=== PATIENT | male | born 1965 | race Caucasian/White ===

== ENCOUNTER 2024-09-01 15:43 | Observation (INO) | payer BC, OTHER ==
[2024-09-01 16:42] VITALS: BMI 33.3
[2024-09-01] MEDS ORDERED: ACETAMINOPHEN INJECTION 100 ML ONE (18:01)
[2024-09-01] MEDS ORDERED: DEXAMETHASONE SOD PHOSPHATE 10 MG/1 ML VIAL ONE (18:01)
[2024-09-01] MEDS: SODIUM CHLORIDE 0.9% 500 ML INFUS.BAG IV ONE (18:28)
[2024-09-01] MEDS: ACETAMINOPHEN 1000 MG/100 ML BAG IVPB ONE (18:28)
[2024-09-01 18:33] LABS: VENOUS BASE EXCESS 1.3 mmol/L (-2-2); VENOUS O2 SATURATION 74.1 % (70-80); VENOUS PCO2 38.5 mmHg (38-52); VENOUS PH 7.437 (7.310-7.410)
[2024-09-01 18:35] LABS: BASO % 0.1 % (0-2.0); EOS % 0.1 % (0-4.5); HEMATOCRIT 43.8 % (35.4-49); HEMOGLOBIN 14.4 GM/dL (11.7-16.9); LYMPH % 7.7 % (8-40); MCH 30.7 pg (25.7-33.7); MCHC 32.9 g/dl (32.0-35.9); MEAN CELL VOLUME 93.3 fl (80-96); MEAN PLT VOLUME 9.2 fl (7.5-11.1); MONO % 13.4 % (3.8-10.2); NEUT % 78.7 % (42.8-82.8); PLATELET COUNT 133 10^3/uL (134-434); RBC 4.69 M/mm3 (4.00-5.60); RDW 12.6 % (11.9-15.9); WHITE BLOOD COUNT 6.8 K/mm3 (4.0-10.0)
[2024-09-01 18:38] LABS: URINE APPEARANCE CLEAR; URINE BILIRUBIN NEGATIVE (NEGATIVE); URINE COLOR YELLOW; URINE GLUCOSE (UA) NEGATIVE (NEGATIVE); URINE KETONE TRACE (NEGATIVE); URINE LEUK ESTERASE NEGATIVE (NEGATIVE); URINE NITRITE NEGATIVE (NEGATIVE); URINE PROTEIN TRACE (NEGATIVE); URINE UROBILINOGEN 0.2 mg/dL (0.2-1.0)
[2024-09-01 18:46] LABS: INR 1.13 (0.83-1.09); PROTHROMBIN TIME (PATIENT) 12.9 SEC (9.7-13.0)
[2024-09-01 18:49] LABS: ACTIVATED PTT 28.9 SECONDS (25.2-36.5)
[2024-09-01 18:52] LABS: POTASSIUM 3.8 mmol/L (3.5-5.1)
[2024-09-01 18:55] LABS: ALBUMIN 4.1 g/dl (3.4-5.0); BLOOD UREA NITROGEN 12.8 mg/dL (7-18)
[2024-09-01 18:58] LABS: CREATININE 1.2 mg/dL (0.55-1.3)
[2024-09-01 18:59] LABS: BILIRUBIN,TOTAL 0.6 mg/dL (0.2-1); TOT PROT 7.6 g/dl (6.4-8.2)
[2024-09-01] MEDS: REMDESIVIR 200 MG in SODIUM CHLORIDE 250 ML IVPB ONE (19:08)
[2024-09-01] MEDS: DEXAMETHASONE SOD PHOSPHATE 10 MG/1 ML VIAL IVPUSH ONE (19:09)
[2024-09-01] MEDS ORDERED: APIXABAN 5 MG TABLET ONE (20:52)
[2024-09-01] MEDS: APIXABAN 5 MG TABLET PO ONE (20:57)
[2024-09-02] MEDS ORDERED: BENZOCAINE/MENTHOL 1 EACH LOZENGE MM PRN (04:35)
[2024-09-02] MEDS: ACETAMINOPHEN 1000 MG/100 ML BAG IVPB ONE (04:44)
[2024-09-02 09:29] LABS: HEMATOCRIT 39.5 % (35.4-49); HEMOGLOBIN 13.6 GM/dL (11.7-16.9); LYMPH % 13.6 % (8-40); MCH 31.4 pg (25.7-33.7); MCHC 34.4 g/dl (32.0-35.9); MEAN CELL VOLUME 91.3 fl (80-96); MEAN PLT VOLUME 9.7 fl (7.5-11.1); MONO % 13.9 % (3.8-10.2); NEUT % 72.5 % (42.8-82.8); PLATELET COUNT 124 10^3/uL (134-434); RBC 4.32 M/mm3 (4.00-5.60); RDW 12.9 % (11.9-15.9); WHITE BLOOD COUNT 5.3 K/mm3 (4.0-10.0)
[2024-09-02] MEDS ORDERED: APIXABAN 5 MG TABLET PO SCH (10:00)
[2024-09-02 10:03] LABS: ALBUMIN 3.7 g/dl (3.4-5.0)
[2024-09-02 10:04] LABS: BLOOD UREA NITROGEN 14.1 mg/dL (7-18)
[2024-09-02 10:05] LABS: CALCIUM 8.7 mg/dL (8.5-10.1)
[2024-09-02 10:07] LABS: PHOSPHOROUS 2.9 mg/dL (2.5-4.9)
[2024-09-02 10:08] LABS: BILIRUBIN,TOTAL 0.4 mg/dL (0.2-1); TOT PROT 6.8 g/dl (6.4-8.2)
[2024-09-02] MEDS: LISINOPRIL 10 MG TABLET PO SCH (10:16)
[2024-09-02] MEDS: APIXABAN 5 MG TABLET PO SCH (10:16)
[2024-09-02] MEDS: ROSUVASTATIN CA 10 MG TABLET PO SCH (10:16)
[2024-09-02] MEDS ORDERED: DEXAMETHASONE SOD PHOSPHATE 10 MG/1 ML VIAL IVPUSH ONE ×3 (17:13→18:56)
[2024-09-02] MEDS: DEXAMETHASONE 4 MG TABLET (FP) PO SCH (18:42)
[2024-09-02] MEDS: REMDESIVIR 100 MG in SODIUM CHLORIDE 250 ML IVPB SCH (18:43)
[2024-09-02] MEDS ORDERED: FAMOTIDINE 10 MG TABLET PO ONE (20:04)
[2024-09-02] MEDS: LACTATED RINGERS SOLUTION 1,000 ML/1,000 ML INFUS.BAG IV SCH (21:48)
[2024-09-02] MEDS: BENZOCAINE/MENTHOL 1 EACH LOZENGE MM ONE (21:48)
[2024-09-02 21:53] VITALS: RESP 18
[2024-09-03] MEDS: guaiFENesin 200 MG/10 ML 10 ML UNIT-DOSE CUPS PO PRN (09:28)
[2024-09-03 09:37] LABS: POTASSIUM 4.2 mmol/L (3.5-5.1)
[2024-09-03 09:39] LABS: HEMATOCRIT 40.2 % (35.4-49); HEMOGLOBIN 13.3 GM/dL (11.7-16.9); MCH 30.5 pg (25.7-33.7); MEAN CELL VOLUME 92.4 fl (80-96); MEAN PLT VOLUME 9.8 fl (7.5-11.1); PLATELET COUNT 134 10^3/uL (134-434); RBC 4.34 M/mm3 (4.00-5.60); RDW 12.8 % (11.9-15.9); WHITE BLOOD COUNT 5.1 K/mm3 (4.0-10.0)
[2024-09-03 09:44] LABS: CALCIUM 8.6 mg/dL (8.5-10.1)
[2024-09-03 09:45] LABS: ALBUMIN 3.2 g/dl (3.4-5.0); BLOOD UREA NITROGEN 15.4 mg/dL (7-18)
[2024-09-03 09:46] LABS: BILIRUBIN,TOTAL 0.3 mg/dL (0.2-1); TOT PROT 6.4 g/dl (6.4-8.2)
[2024-09-03 13:25] VITALS: BP 132/69; PULSE 65; TEMP 98.6
[2024-09-03] MEDS ORDERED: REMDESIVIR 100 MG in SODIUM CHLORIDE 250 ML IVPB SCH (19:00)
== END 2024-09-03 15:54 | disposition home or self-care (01) ==
LOC: JER 15:43 → JERBED 19:27 → J6S 09-02 01:50
PROVIDERS: ADMIT Internal Medicine; ATTEND Student in an Organized Health Care Education/Training Program
PROC: 3E033NZ Introduction of Analgesics, Hypnotics, Sedatives into Peripheral Vein, Percutaneous Approach (ICD-10-PCS; principal; 2024-09-01)
PROC: 3E033GC Introduction of Other Therapeutic Substance into Peripheral Vein, Percutaneous Approach (ICD-10-PCS; 2024-09-01)
PROC: 3E033GC Introduction of Other Therapeutic Substance into Peripheral Vein, Percutaneous Approach (ICD-10-PCS; 2024-09-01)
PROC: 3E0337Z Introduction of Electrolytic and Water Balance Substance into Peripheral Vein, Percutaneous Approach (ICD-10-PCS; 2024-09-01)
DX: U07.1 COVID-19 (principal); R09.02 Hypoxemia; I10 Essential (primary) hypertension; Z79.01 Long term (current) use of anticoagulants; E78.5 Hyperlipidemia, unspecified; R09.89 Other specified symptoms and signs involving the circulatory and respiratory systems; Z86.718 Personal history of other venous thrombosis and embolism
CPT/HCPCS: 0241U-QW; 36415; 71045-TC-FY; 71275-TC; 80053; 81003; 82803; 83605; 83615; 83735; 84100; 84484; 85025; 85027; 85379; 85610; 85651; 85730; 86140; 86850; 86900; 86901; 87086; 93005; 93010; 94761; 99291; G0378; J0131; J0248; J1100; Q9967